=== PATIENT | female | born 1985 | race Two or more races ===

== ENCOUNTER 2016-09-02 21:41 | Emergency (ER) | payer SELFPAY ==
[~2016-09-02] VITALS: Ht 167.6 cm; Wt 69.9 kg
[2016-09-02 22:00] VITALS: BP 119/77
[2016-09-02] MEDS ORDERED: IBUPROFEN 600 MG TAB PO ONE (22:15)
[2016-09-03] MEDS ORDERED: NEOMYCIN-BACITRACIN-POLYM UNITDOSE PKG TOP OINT TOP ONE (00:09)
== END 2016-09-03 00:22 | disposition home or self-care (01) ==
LOC: ER 21:58
DX: S13.9XXA Sprain of joints and ligaments of unspecified parts of neck, initial encounter (principal); R51 Headache; S20.212A Contusion of left front wall of thorax, initial encounter; S60.512A Abrasion of left hand, initial encounter; F17.210 Nicotine dependence, cigarettes, uncomplicated; V43.52XA Car driver injured in collision with other type car in traffic accident, initial encounter; Y93.89 Activity, other specified; Y92.89 Other specified places as the place of occurrence of the external cause; Y99.8 Other external cause status
CPT/HCPCS: 70450; 72125; 80307; 81025